=== PATIENT | male | born 1990 | race Caucasian/White ===

== ENCOUNTER 2025-03-16 16:19 | Emergency (ER) | payer OTHER, SELFPAY ==
[2025-03-16 16:32] VITALS: BP 222/114
[2025-03-16 17:20] LABS: Urine Character Clear (Clear)
[2025-03-16 17:26] LABS: Hematocrit 41.7 % (39.0-52.0); Hemoglobin 13.7 g/dL (13.0-18.0); Mean Corp Hgb Conc. 32.9 g/dL (33.0-37.0); Mean Corpuscular Volume 84.6 fL (80.0-94.0); Nucleated Red Blood Cells % 0 % (-); Platelet Count 270 10^3/uL (130-400); Red Cell Dist. Width 15.6 % (11.5-14.5)
[2025-03-16 17:39] LABS: ALT (SGPT) 24 U/L (0-50); AST (SGOT) 24 U/L (17-59); Albumin 4.3 g/dl (3.5-5.0); Alkaline Phosphatase 57 U/L (38-126); Blood Urea Nitrogen 10 mg/dl (9-20); Calcium 8.8 mg/dl (8.4-10.2); Carbon Dioxide 29 mmol/L (22-30); Chloride 104 mmol/L (98-107); Glucose 125 mg/dl (70-99); Lipase 63 U/L (23-300); Potassium 3.9 mmol/L (3.5-5.1); Sodium 139 mmol/L (135-145); Total Protein 7.3 g/dl (6.3-8.2); eGFR > 60.00
[2025-03-16 18:14] LABS: Urine Squamous Cell 0-2 /LPF (Few)
[2025-03-16 18:15] LABS: Urine Red Blood Cell 50-60 /HPF (0-2)
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
[2025-03-16] MEDS: TORADOL 30 MG IV (19:04)
[2025-03-16] MEDS: DILAUDID 2 MG IV (19:04)
[2025-03-16] MEDS: NSS 1000 IV (19:05)
[2025-03-16 20:18] VITALS: BP 165/93
[2025-03-16] MEDS: FLOMAX 0.4 MG PO (20:35)
[2025-03-16] MEDS: KEFLEX 500 MG PO (20:35)
[2025-03-16 20:43] VITALS: BP 158/86
== END 2025-03-16 20:48 | disposition home or self-care (01) ==
LOC: EMR 16:19
PROVIDERS: Emergency Medicine; EMERGENCY PHYSICIAN Emergency Medicine; FAMILY PHYSICIAN Internal Medicine
DX: M79.3 Panniculitis, unspecified (principal); N20.0 Calculus of kidney; R60.0 Localized edema; E66.9 Obesity, unspecified
CPT/HCPCS: 99284; 96374; 96375; 96361; 74176; 80053; 81003; 81015; 83690; 85025